=== PATIENT | male | born 1970 | race Caucasian/White ===

== ENCOUNTER 2020-07-21 13:28 | Day surgery (SDC) | payer OTHER ==
[2020-07-21] MEDS ORDERED: Xylocaine 1% Vial 30 ML PF IJ ONE (13:29)
[2020-07-21] MEDS ORDERED: BUPIVACAINE 0.5% VIAL IJ ONE (13:29)
[2020-07-21] MEDS ORDERED: Depo-Medrol 40 MG/ML IM ONE (13:29)
--- NOTE | 2020-07-21 16:38 | XRAY ---
Indication: Left shoulder injection. Intraoperative fluoroscopy was provided for 8 seconds. Single digital spot image submitted for interpretation demonstrates needle tip projecting over the left glenohumeral joint superiorly. Small amount of contrast injected for needle tip placement. Correlate with intraoperative findings/report.
--- NOTE | 2020-07-21 16:40 | XRAY ---
10 seconds fluoroscopy time in surgery for intra-articular injection of the right shoulder.
--- NOTE | 2020-07-21 16:40 | XRAY ---
8 seconds fluoroscopy time in surgery for intra-articular injection of the left shoulder.
--- NOTE | 2020-07-21 16:48 | XRAY ---
Indication: Right shoulder injection. Intraoperative fluoroscopy was provided for 10 seconds. Single digital spot image submitted for interpretation demonstrates needle tip projecting over the right glenohumeral joint superiorly. Small amount of contrast injected for needle tip placement. Correlate with intraoperative findings/report.
== END 2020-07-21 15:57 | disposition home or self-care (01) ==
LOC: SDC-PAIN 13:28
PROVIDERS: ATTEND Psychiatry & Neurology Pain Medicine
DX: M19.012 Primary osteoarthritis, left shoulder (principal); M19.011 Primary osteoarthritis, right shoulder; J44.9 Chronic obstructive pulmonary disease, unspecified; F43.10 Post-traumatic stress disorder, unspecified; Z79.899 Other long term (current) drug therapy
CPT/HCPCS: 20610; 73030; 77002; J1030; J2001; Q9966

== ENCOUNTER 2023-10-02 00:07 | Emergency (ER) | payer MEDICARE ==
[2023-10-02] MEDS ORDERED: TYLENOL 325 MG PO STA (00:50)
[2023-10-02] MEDS ORDERED: Zofran 4 MG/2 ML VIAL IV STA (00:50)
[2023-10-02] MEDS ORDERED: Sodium Chloride 0.9% 1000 ML 1,000 ML IV STA ×2 (00:50→01:46)
--- NOTE | 2023-10-02 00:50 | ERPHSYRPT ---
- History of Present Illness Time Seen by Provider: 10/02/23 00:35 Source: patient, family Exam Limitations: no limitations Patient Subjective Stated Complaint: Migraine headache x 1 week. Worse tonight with light sensitive, double vision, blurry vision. Nauseated. Cough started today. Triage Nursing Assessment: Patient presents with a migraine headache x 1 week. Patient states that the migraine is worse tonight with having light sensitivity, double vision, blurry vision. Nauseated. Cough started today. States has been taking Theraflu with some Ibuprofen flu pills. Physician History: This is a 53-year-old white male patient who drinks 1/5 of vodka daily and presents with 1 week history of headache, body aches, cough and sore throat. He is mildly nauseated but no vomiting. He has no abdominal pain. He has no chest pain. He denies shortness of breath. Patient has no known exposure to individuals similar symptoms. Patient takes no medications chronically and he has no known drug allergies. Patient has been using TheraFlu which does have dextromethorphan, acetaminophen and phenylephrine in it. He also has taken ibuprofen today. The last time he took ibuprofen was approximately 1 PM on 10/01/2023. It has been at least 6 hours since he is taken any medication per his report. Timing/Duration: week(s) (1) Fever Severity: moderate Fever Therapy PHARMACIST ASSISTANT: Ibuprofen, cold remedies Associated Symptoms: cough, headache, muscle aches, sore throat, No stiff neck Allergies/Adverse Reactions: No Known Drug Allergies Allergy (Unverified 10/02/23 00:14) Hx Tetanus, Diphtheria Vaccination/Date Given: Yes (2015) Hx Influenza Vaccination/Date Given: No Hx Pneumococcal Vaccination/Date Given: No Immunizations Up to Date: No Travel Risk - International Travel Have you traveled outside of the country in past 3 weeks: No - Coronavirus Screening Are you exhibiting any of the following symptoms?: Yes Symptoms: Fever, Cough: New Onset, Loss of Taste or Smell, Headaches/Body Aches/Fatigue Close contact with a COVID-19 positive Pt in past 14-21 Days: No - Vaccine Status Have you recieved a Covid-19 vaccination: No - Review of Systems Constitutional: Fever Eyes: No Symptoms Ears, Nose, & Throat: Throat Pain Respiratory: Cough Cardiac: No Symptoms, No Chest Pain Abdominal/Gastrointestinal: Nausea, Appetite Changes, No Vomiting Genitourinary Symptoms: No Symptoms Musculoskeletal: Arthralgias, Myalgias Skin: No Symptoms Neurological: Headache Psychological: Alcohol Abuse Endocrine: No Symptoms Hematologic/Lymphatic: No Symptoms Immunological/Allergic: No Symptoms All Other Systems: Reviewed and Negative - Past Medical History Pertinent Past Medical History: Yes Neurological History: No Pertinent History ENT History: No Pertinent History Cardiac History: No Pertinent History Respiratory History: Bronchitis, COPD, Sleep Apnea Endocrine Medical History: No Pertinent History Musculoskeletal History: Arthritis, Fractures GI Medical History: No Pertinent History History: No Pertinent History Psycho-Social History: Depression Male Reproductive Disorders: No Pertinent History - Past Surgical History Past Surgical History: Yes Neuro Surgical History: No Pertinent History Cardiac: No Pertinent History Respiratory: No Pertinent History Gastrointestinal: No Pertinent History Genitourinary: No Pertinent History Musculoskeletal: Orthopedic Surgery, Other Male Surgical History: No Pertinent History Other Surgical History: Right Jaw with plates, Left skull plate, Right wrist with 2 screws - Social History Smoking Status: Current every day smoker How long have you smoked: 43 Exposure to second hand smoke: No Drug Use: none Patient Lives Alone: Yes - Nursing Vital Signs Nursing Vital Signs: Initial Vital Signs Temperature 102.9 F 10/02/23 00:17 Pulse Rate 107 H 10/02/23 00:17 Respiratory Rate 20 10/02/23 00:17 Blood Pressure 138/92 10/02/23 00:17 O2 Sat by Pulse Oximetry 96 10/02/23 00:17 Pain Scale Pain Intensity 5 - Physical Exam General Appearance: no apparent distress, alert Eye Exam: PERRL/EOMI, eyes nml inspection ENT Exam: normal ENT inspection, no apparent trauma, hearing grossly normal Neck Exam: normal inspection, non-tender, supple, full range of motion Respiratory Exam: normal breath sounds, lungs clear, no respiratory distress, no accessory muscle use, No chest non-tender, No decreased breath sounds, No respiratory distress, No accessory muscle use, No stridor, No wheezing Cardiovascular/Chest Exam: tachycardia Gastrointestinal/Abdominal Exam: soft, non tender, no distention, no mass, no guarding, no ecchymosis, no organomegaly, no pulsatile mass, normal bowel sounds Rectal Exam: not done Extremity Exam: non-tender, normal range of motion, normal inspection Neurologic Exam: alert, oriented x 3, cooperative, store keeper II-XII nml as tested, normal mood/affect, nml cerebellar function, nml station & gait, sensation nml Skin Exam: normal color, warm, dry Lymphatic: No adenopathy SpO2 Interpretation: normal SpO2: 96 O2 Delivery: Room Air - Course Nursing assessment & vital signs reviewed: Yes Ordered Tests: Active Orders 24 hr Category Date Time Status Inventory Control Associate STAT Care 10/02/23 00:50 Active Clean Catch Urine Specimen STAT Care 10/02/23 01:01 Active IV Insertion STAT Care 10/02/23 00:50 Active Pulse Oximetry (ED) STAT Care 10/02/23 00:50 Active CHEST 1 VIEW (PORTABLE) Stat Exams 10/02/23 00:50 Taken BLOOD CULTURE Stat Lab 10/02/23 01:45 Received CBC W DIFF Stat Lab 10/02/23 00:50 Completed CMP Stat Lab 10/02/23 00:35 Completed ETHYL ALCOHOL Stat Lab 10/02/23 00:50 Completed MONO SCREEN Stat Lab 10/02/23 00:35 Completed TROPONIN Q4H Lab 10/02/23 01:00 Completed TROPONIN Q4H Lab 10/02/23 06:15 Ordered TROPONIN Q4H Lab 10/02/23 10:15 Ordered UA W/RFX UR CULTURE Stat Lab 10/02/23 03:59 Completed Urine Triage Profile Stat Lab 10/02/23 03:59 Completed Medication Summary Discontinued Medications Generic Name Dose Route Start Last Admin Trade Name Sajanq PRN Reason Stop Dose Admin Acetaminophen 650 mg 10/02/23 00:50 10/02/23 01:08 Acetaminophen 325 Mg Tablet PO 10/02/23 00:51 650 mg STAT STA Administration Acetaminophen Confirm 10/02/23 01:05 Acetaminophen 325 Mg Tablet Administered 10/02/23 01:06 Dose 650 mg .ROUTE .STK-MED ONE Hydrocodone Bitart/Acetaminophen 15 ml 10/02/23 00:51 10/02/23 01:07 Hydrocodone/Acetaminophen 5 Ml Udcup PO 10/02/23 00:52 15 ml STAT STA Administration Hydrocodone Bitart/Acetaminophen Confirm 10/02/23 01:05 Hydrocodone/Acetaminophen 5 Ml Udcup Administered 10/02/23 01:06 Dose 15 ml .ROUTE .STK-MED ONE Hydromorphone HCl 1 mg 10/02/23 02:44 10/02/23 02:54 Hydromorphone 1 Mg/1ml Inj IV 10/02/23 02:45 1 mg STAT ONE Administration Hydromorphone HCl Confirm 10/02/23 02:53 Hydromorphone 1 Mg/1ml Inj Administered 10/02/23 02:54 Dose 1 mg .ROUTE .STK-MED ONE Sodium Chloride 1,000 mls @ 999 mls/hr 10/02/23 00:50 10/02/23 02:23 Sodium Chloride 0.9% 1000 Ml IV 10/02/23 01:50 Infused .Q1H1M STA Infusion Sodium Chloride Confirm 10/02/23 01:05 Sodium Chloride 0.9% 1000 Ml Administered 10/02/23 01:06 Dose 1,000 mls @ ud .ROUTE .STK-MED ONE Sodium Chloride 1,000 mls @ 999 mls/hr 10/02/23 01:46 10/02/23 03:13 Sodium Chloride 0.9% 1000 Ml IV 10/02/23 02:46 Infused .Q1H1M STA Infusion Sodium Chloride Confirm 10/02/23 01:52 Sodium Chloride 0.9% 1000 Ml Administered 10/02/23 01:53 Dose 1,000 mls @ ud .ROUTE .STK-MED ONE Ibuprofen 600 mg 10/02/23 01:01 10/02/23 01:08 Ibuprofen 600 Mg Tablet PO 10/02/23 01:02 600 mg STAT ONE Administration Ibuprofen Confirm 10/02/23 01:04 Ibuprofen 600 Mg Tablet Administered 10/02/23 01:05 Dose 600 mg .ROUTE .STK-MED ONE Ondansetron HCl 4 mg 10/02/23 00:50 10/02/23 01:09 Ondansetron Hcl 4 Mg/2 Ml Vial IV 10/02/23 00:51 4 mg STAT STA Administration Ondansetron HCl Confirm 10/02/23 01:04 Ondansetron Hcl 4 Mg/2 Ml Vial Administered 10/02/23 01:05 Dose 4 mg .ROUTE .STK-MED ONE Pantoprazole Sodium 40 mg 10/02/23 01:01 10/02/23 01:09 Pantoprazole 40 Mg Vial IV 10/02/23 01:02 40 mg STAT ONE Administration Pantoprazole Sodium Confirm 10/02/23 01:05 Pantoprazole 40 Mg Vial Administered 10/02/23 01:06 Dose 40 mg IV .STK-MED ONE Lab/Rad Data: Laboratory Result Diagrams 10/02/23 00:50 10/02/23 00:35 Laboratory Results 10/02/23 10/02/23 10/02/23 Range/Units 03:59 03:59 01:00 WBC (4.0-10.5) x10^3/uL RBC (4.1-5.6) x10^6/uL Hgb (12.5-18.0) g/dL Hct (42-50) % MCV (78-100) fL MCH (26-32) pg MCHC (32-36) g/dL RDW (11.5-14.0) % Plt Count (150-450) x10^3/uL MPV (7.5-11.0) fL Gran % (36.0-66.0) % Immature Gran % (Auto) (0.00-0.4) % Nucleat RBC Rel Count (0.00-0.1) % Eos # (Auto) (0-0.5) x10^3/uL Immature Gran # (Auto) (0.00-0.03) x10^3u/L Absolute Lymphs (auto) (1.0-4.6) x10^3/uL Absolute Monos (auto) (0.0-1.3) x10^3/uL Absolute Nucleated RBC (0.00-0.01) x10^3u/L Lymphocytes % (24.0-44.0) % Monocytes % (0.0-12.0) % Eosinophils % (0.00-5.0) % Basophils % (0.0-0.4) % Absolute Granulocytes (1.4-6.9) x10^3/uL Basophils # (0-0.4) x10^3/uL Sodium (137-145) mmol/L Potassium (3.5-5.1) mmol/L Chloride (98-107) mmol/L Carbon Dioxide (22-30) mmol/L Anion Gap (5-15) MEQ/L BUN (9-20) mg/dL Creatinine (0.66-1.25) mg/dL Estimated GFR ML/MIN Glucose (74-106) mg/dL Calcium (8.4-10.2) mg/dL Total Bilirubin (0.2-1.3) mg/dL AST (17-59) U/L ALT (0-50) U/L Alkaline Phosphatase (38-126) U/L Troponin I < 0.012 (0.000-0.034) ng/mL Serum Total Protein (6.3-8.2) g/dL Albumin (3.5-5.0) g/dL Urine Color Dark Yellow (Yellow) Urine Appearance Clear (Clear) Urine pH 6.0 (4.6-8.0) Ur Specific [place] 1.025 (1.005-1.030) Urine Protein Trace A (Negative) Urine Glucose (UA) Negative (Negative) mg/dL Urine Ketones Negative (Negative) Urine Blood Negative (Negative) Urine Nitrite Negative (Negative) Urine Bilirubin Negative (Negative) Urine Urobilinogen 1.0 A (0.2) mg/dL Ur Leukocyte Esterase Negative (Negative) U Hyaline Cast (Auto) NONE SEEN (0-2) /LPF Urine Microscopic RBC 0-2 (0-5) /HPF Urine Microscopic WBC 0-2 (0-5) /HPF Ur Epithelial Cells None Seen (None Seen) /HPF Urine Bacteria None Seen (None Seen) /HPF Urine Culture Reflexed NO (NO) Urine Opiates Level POSITIVE A (NEGATIVE) Ur Methadone NEGATIVE (NEGATIVE) Urine Barbiturates NEGATIVE (NEGATIVE) Ur Phencyclidine (PCP) NEGATIVE (NEGATIVE) Urine Amphetamine POSITIVE A (NEGATIVE) U Benzodiazepine Level NEGATIVE (NEGATIVE) Urine Cocaine NEGATIVE (NEGATIVE) Urine Marijuana (THC) NEGATIVE (NEGATIVE) Ethyl Alcohol (0-10) mg/dL Monoscreen (NEGATIVE) Influenza Type A Ag (NEGATIVE) Influenza Type B Ag (NEGATIVE) RSV (PCR) (NEGATIVE) SARS-CoV-2 (PCR) (NEGATIVE) Group A Strep Antibody (NEGATIVE) 10/02/23 10/02/23 10/02/23 Range/Units 00:50 00:50 00:35 WBC 5.6 (4.0-10.5) x10^3/uL RBC 5.19 (4.1-5.6) x10^6/uL Hgb 15.2 (12.5-18.0) g/dL Hct 45.7 (42-50) % MCV 88.1 (78-100) fL MCH 29.3 (26-32) pg MCHC 33.3 (32-36) g/dL RDW 12.5 (11.5-14.0) % Plt Count 160 (150-450) x10^3/uL MPV 9.3 (7.5-11.0) fL Gran % 73.8 H (36.0-66.0) % Immature Gran % (Auto) 0.2 (0.00-0.4) % Nucleat RBC Rel Count 0.0 (0.00-0.1) % Eos # (Auto) 0.01 (0-0.5) x10^3/uL Immature Gran # (Auto) 0.01 (0.00-0.03) x10^3u/L Absolute Lymphs (auto) 0.85 L (1.0-4.6) x10^3/uL Absolute Monos (auto) 0.57 (0.0-1.3) x10^3/uL Absolute Nucleated RBC 0.00 (0.00-0.01) x10^3u/L Lymphocytes % 15.2 L (24.0-44.0) % Monocytes % 10.2 (0.0-12.0) % Eosinophils % 0.2 (0.00-5.0) % Basophils % 0.4 (0.0-0.4) % Absolute Granulocytes 4.13 (1.4-6.9) x10^3/uL Basophils # 0.02 (0-0.4) x10^3/uL Sodium (137-145) mmol/L Potassium (3.5-5.1) mmol/L Chloride (98-107) mmol/L Carbon Dioxide (22-30) mmol/L Anion Gap (5-15) MEQ/L BUN (9-20) mg/dL Creatinine (0.66-1.25) mg/dL Estimated GFR ML/MIN Glucose (74-106) mg/dL Calcium (8.4-10.2) mg/dL Total Bilirubin (0.2-1.3) mg/dL AST (17-59) U/L ALT (0-50) U/L Alkaline Phosphatase (38-126) U/L Troponin I (0.000-0.034) ng/mL Serum Total Protein (6.3-8.2) g/dL Albumin (3.5-5.0) g/dL Urine Color (Yellow) Urine Appearance (Clear) Urine pH (4.6-8.0) Ur Specific [place] (1.005-1.030) Urine Protein (Negative) Urine Glucose (UA) (Negative) mg/dL Urine Ketones (Negative) Urine Blood (Negative) Urine Nitrite (Negative) Urine Bilirubin (Negative) Urine Urobilinogen (0.2) mg/dL Ur Leukocyte Esterase (Negative) U Hyaline Cast (Auto) (0-2) /LPF Urine Microscopic RBC (0-5) /HPF Urine Microscopic WBC (0-5) /HPF Ur Epithelial Cells (None Seen) /HPF Urine Bacteria (None Seen) /HPF Urine Culture Reflexed (NO) Urine Opiates Level (NEGATIVE) Ur Methadone (NEGATIVE) Urine Barbiturates (NEGATIVE) Ur Phencyclidine (PCP) (NEGATIVE) Urine Amphetamine (NEGATIVE) U Benzodiazepine Level (NEGATIVE) Urine Cocaine (NEGATIVE) Urine Marijuana (THC) (NEGATIVE) Ethyl Alcohol < 10 (0-10) mg/dL Monoscreen POSITIVE (NEGATIVE) Influenza Type A Ag (NEGATIVE) Influenza Type B Ag (NEGATIVE) RSV (PCR) (NEGATIVE) SARS-CoV-2 (PCR) (NEGATIVE) Group A Strep Antibody (NEGATIVE) 10/02/23 10/02/23 Range/Units 00:35 00:30 WBC (4.0-10.5) x10^3/uL RBC (4.1-5.6) x10^6/uL Hgb (12.5-18.0) g/dL Hct (42-50) % MCV (78-100) fL MCH (26-32) pg MCHC (32-36) g/dL RDW (11.5-14.0) % Plt Count (150-450) x10^3/uL MPV (7.5-11.0) fL Gran % (36.0-66.0) % Immature Gran % (Auto) (0.00-0.4) % Nucleat RBC Rel Count (0.00-0.1) % Eos # (Auto) (0-0.5) x10^3/uL Immature Gran # (Auto) (0.00-0.03) x10^3u/L Absolute Lymphs (auto) (1.0-4.6) x10^3/uL Absolute Monos (auto) (0.0-1.3) x10^3/uL Absolute Nucleated RBC (0.00-0.01) x10^3u/L Lymphocytes % (24.0-44.0) % Monocytes % (0.0-12.0) % Eosinophils % (0.00-5.0) % Basophils % (0.0-0.4) % Absolute Granulocytes (1.4-6.9) x10^3/uL Basophils # (0-0.4) x10^3/uL Sodium 131 L (137-145) mmol/L Potassium 4.2 (3.5-5.1) mmol/L Chloride 97 L (98-107) mmol/L Carbon Dioxide 24 (22-30) mmol/L Anion Gap 14.3 (5-15) MEQ/L BUN 14 (9-20) mg/dL Creatinine 1.03 (0.66-1.25) mg/dL Estimated GFR 85.8 ML/MIN Glucose 109 H (74-106) mg/dL Calcium 9.0 (8.4-10.2) mg/dL Total Bilirubin 0.60 (0.2-1.3) mg/dL AST 45 (17-59) U/L ALT 49 (0-50) U/L Alkaline Phosphatase 90 (38-126) U/L Troponin I (0.000-0.034) ng/mL Serum Total Protein 8.1 (6.3-8.2) g/dL Albumin 4.5 (3.5-5.0) g/dL Urine Color (Yellow) Urine Appearance (Clear) Urine pH (4.6-8.0) Ur Specific [place] (1.005-1.030) Urine Protein (Negative) Urine Glucose (UA) (Negative) mg/dL Urine Ketones (Negative) Urine Blood (Negative) Urine Nitrite (Negative) Urine Bilirubin (Negative) Urine Urobilinogen (0.2) mg/dL Ur Leukocyte Esterase (Negative) U Hyaline Cast (Auto) (0-2) /LPF Urine Microscopic RBC (0-5) /HPF Urine Microscopic WBC (0-5) /HPF Ur Epithelial Cells (None Seen) /HPF Urine Bacteria (None Seen) /HPF Urine Culture Reflexed (NO) Urine Opiates Level (NEGATIVE) Ur Methadone (NEGATIVE) Urine Barbiturates (NEGATIVE) Ur Phencyclidine (PCP) (NEGATIVE) Urine Amphetamine (NEGATIVE) U Benzodiazepine Level (NEGATIVE) Urine Cocaine (NEGATIVE) Urine Marijuana (THC) (NEGATIVE) Ethyl Alcohol (0-10) mg/dL Monoscreen (NEGATIVE) Influenza Type A Ag POSITIVE (NEGATIVE) Influenza Type B Ag NEGATIVE (NEGATIVE) RSV (PCR) NEGATIVE (NEGATIVE) SARS-CoV-2 (PCR) NEGATIVE (NEGATIVE) Group A Strep Antibody NOT DETECTED (NEGATIVE) - Progress Progress: improved, re-examined Progress Note: 10/02/23 01:08 This patient's medical issue is 1 of moderate complexity. The level of complexity and the workup performed is based on review of the patient's past medical history, review of the patient's medication list, reviewed patient's drug allergy list, history present illness and physical findings on examination. This patient's workup includes placement of intravenous line, infusion of normal saline solution, infusion of Zofran intravenously, infusion of Protonix intravenously, oral hydrocodone/acetaminophen cough medicine, oral ibuprofen, CBC, CMP, viral swabs, group A strep swab, monotest, chest x-ray and urinalysis as well as urine drug screen and alcohol level. 10/02/23 04:57 I interpreted the patient's laboratory data results. The patient is positive for influenza A and mononucleosis Counseled pt/family regarding: lab results, diagnosis, need for follow-up, rad results Medical Desision Making - Independent Historian Additional History obtained from: Relative/friend - Diagnostic Testing Diagnostic test were ordered, analyzed, and reviewed by me: Yes Radiological Interpretation: Interpreted by me - Risk of complications The pt has a mod risk of morbidity or mortality based on: Need for prescription drug management - Departure Departure Disposition: Home Clinical Impression: Fever, Influenza A H1N1 infection, Mononucleosis Condition: Stable Critical Care Time: No Referrals: DAQUAN GONZALES [Primary Care Provider] - Follow up/PCP as directed Additional Instructions: Drink plenty of cool liquids. Avoid alcohol use while taking Tylenol/acetaminophen. Take ibuprofen 600 mg orally every 8 hours with food for the next 5 days. Prescriptions: Ondansetron ODT 4 MG [Zofran Odt 4 mg] 4 mg PO Q6H PRN PRN #10 tablet PRN Reason: Vomiting
[2023-10-02] MEDS ORDERED: HYDROCODONE-ACETAMIN 2.5-108/5 ML SOLUTION PO STA (00:51)
[2023-10-02 00:56] LABS: Absolute Neutrophil Ct (ANC) 4.13 x10^3/uL (1.4-6.9); BASOPHIL % 0.4 % (0.0-0.4); Basophil (Absolute #) 0.02 x10^3/uL (0-0.4); Eosinophil % 0.2 % (0.00-5.0); Eosinophil (Absolute #) 0.01 x10^3/uL (0-0.5); Hematocrit 45.7 % (42-50); Hemoglobin 15.2 g/dL (12.5-18.0); IMMATURE GRAN # 0.01 x10^3u/L (0.00-0.03); IMMATURE GRAN % 0.2 % (0.00-0.4); Lymphocyte (Absolute #) 0.85 x10^3/uL (1.0-4.6); Lymphocytes % 15.2 % (24.0-44.0); Mean Cell Volume 88.1 fL (78-100); Mean Corpuscular Hemoglobin 29.3 pg (26-32); Mean Corpuscular Hgb Concent. 33.3 g/dL (32-36); Mean Platelet Volume 9.3 fL (7.5-11.0); Monocyte (Absolute #) 0.57 x10^3/uL (0.0-1.3); Monocytes % 10.2 % (0.0-12.0); Neutrophil % 73.8 % (36.0-66.0); Platelet Count 160 x10^3/uL (150-450); Red Blood Count 5.19 x10^6/uL (4.1-5.6); Red Cell Distribution Width 12.5 % (11.5-14.0); White Blood Count 5.6 x10^3/uL (4.0-10.5)
[2023-10-02] MEDS ORDERED: MOTRIN 600 MG PO ONE (01:01)
[2023-10-02] MEDS ORDERED: PROTONIX 40 MG IV IV ONE ×2 (01:01→01:05)
[2023-10-02 01:04] LABS: ALBUMIN 4.5 g/dL (3.5-5.0); ANION GAP 14.3 MEQ/L (5-15); BILIRUBIN,TOTAL 0.6 mg/dL (0.2-1.3); Creatinine 1 1.03 mg/dL (0.66-1.25); EST GLOMERULAR FILTRATION RATE 85.8 ML/MIN; Potassium 4.2 mmol/L (3.5-5.1); Total Protein 8.1 g/dL (6.3-8.2)
[2023-10-02] MEDS ORDERED: Zofran 4 MG/2 ML VIAL ONE (01:04)
[2023-10-02] MEDS ORDERED: MOTRIN 600 MG ONE (01:04)
[2023-10-02 01:05] LABS: Group A Strep NOT DETECTED (NEGATIVE)
[2023-10-02] MEDS ORDERED: HYDROCODONE-ACETAMIN 2.5-108/5 ML SOLUTION ONE (01:05)
[2023-10-02] MEDS ORDERED: TYLENOL 325 MG ONE (01:05)
[2023-10-02] MEDS ORDERED: Sodium Chloride 0.9% 1000 ML 1,000 ML ONE ×2 (01:05→01:52)
[2023-10-02 01:17] LABS: INFLUENZA B NEGATIVE (NEGATIVE); RESPIRATORY SYNCTIAL VIRUS NEGATIVE (NEGATIVE); SARS-CoV-2 Xpert Express NEGATIVE (NEGATIVE)
[2023-10-02 01:18] LABS: INFLUENZA A POSITIVE (NEGATIVE)
[2023-10-02] MEDS ORDERED: Hydromorphone 1 mg/ml Injection IV ONE (02:44)
[2023-10-02] MEDS ORDERED: Hydromorphone 1 mg/ml Injection ONE (02:53)
[2023-10-02 04:13] LABS: Appearance Clear (Clear); Bacteria None Seen /HPF (None Seen); Bilirubin Negative (Negative); Blood Negative (Negative); Epithelial Cells None Seen /HPF (None Seen); Glucose, Urine Negative (Negative); Hyaline Casts NONE SEEN /LPF (0-2); Ketones Negative (Negative); Leukocyte Esterase Negative (Negative); Nitrite Negative (Negative); Protein,Urine Dip Trace (Negative); RBC 0-2 /HPF (0-5); Specific Gravity 1.025 (1.005-1.030); WBC 0-2 /HPF (0-5)
[2023-10-02 04:14] LABS: ADD URINE CULTURE? NO (NO)
[2023-10-02 04:22] LABS: Barbiturate,Urine NEGATIVE (NEGATIVE); Benzodiazepine,Urine NEGATIVE (NEGATIVE); Cocaine,Urine NEGATIVE (NEGATIVE); Methadone,Urine NEGATIVE (NEGATIVE); Opiate,Urine POSITIVE (NEGATIVE); PCP,Urine NEGATIVE (NEGATIVE); THC,Urine NEGATIVE (NEGATIVE)
[2023-10-02 04:48] LABS: Amphetamine,Urine POSITIVE (NEGATIVE)
[2023-10-02 04:58] VITALS: PULSE 75; TEMP 98
[2023-10-02 04:59] VITALS: O2SAT 96
[2023-10-02 05:58] VITALS: BP 119/79; RESP 15
--- NOTE | 2023-10-02 09:16 | XRAY ---
Indication: Fever and cough. Comparison: None Portable chest demonstrates a few incidental tiny calcified granulomas. No focal infiltrate, consolidation, or large effusion. Heart and mediastinal structures within normal limits. Bony thorax intact with minimal degenerative changes. Impression: Nonacute chest with chronic features.
== END 2023-10-02 05:51 | disposition home or self-care (01) ==
LOC: ED 00:07
DX: J10.1 Influenza due to other identified influenza virus with other respiratory manifestations (principal); B27.90 Infectious mononucleosis, unspecified without complication; R50.9 Fever, unspecified; R51.9 Headache, unspecified; M79.10 Myalgia, unspecified site; R05.1 Acute cough; R11.0 Nausea; Z28.310 Unvaccinated for COVID-19; Z72.0 Tobacco use
CPT/HCPCS: 0241U; 36000; 36415; 71045; 80053; 80307; 81001; 82077; 84484; 85025; 86308; 87040; 87651; 93041; 94760; 96360; 96374; 96375; 99284; J1170; J2405; A9270-GY

== ENCOUNTER 2023-10-04 16:23 | Emergency (ER) | payer MEDICARE ==
[2023-10-04] MEDS ORDERED: TORAdol 30 mg Injection IM ONE (16:55)
--- NOTE | 2023-10-04 16:57 | ERPHSYRPT ---
- History of Present Illness Source: patient Exam Limitations: no limitations Patient Subjective Stated Complaint: pt states that he was in the er on 10/02 and diagnosed with flu a. pt states that the headache is still there. pt states that pain is better than the but thought he should get it checked out Triage Nursing Assessment: pt ambulated into the er; pt is axo x4; c/o headache; pt states 7/10 pain to head; skin PDW; afebrile; no respiratory distress present; vital wnl Physician History: Patient was diagnosed with flu A. The patient presents again with persistent headache. He is also had cough congestion and bodyaches. He was only discharged on Zofran. Allergies/Adverse Reactions: No Known Drug Allergies Allergy (Verified 10/04/23 16:33) Hx Tetanus, Diphtheria Vaccination/Date Given: Yes (2015) Hx Influenza Vaccination/Date Given: No Hx Pneumococcal Vaccination/Date Given: No Travel Risk - International Travel Have you traveled outside of the country in past 3 weeks: No - Coronavirus Screening Are you exhibiting any of the following symptoms?: Yes Symptoms: Cough: New Onset, Vomiting/Diarrhea, Headaches/Body Aches/Fatigue - Vaccine Status Have you recieved a Covid-19 vaccination: No - Review of Systems Constitutional: Fever, Chills, Fatigue, Night Sweats Eyes: No Symptoms Ears, Nose, & Throat: No Symptoms Respiratory: Cough Cardiac: No Chest Pain, No Edema, No Syncope Abdominal/Gastrointestinal: No Abdominal Pain, No Nausea, No Vomiting, No Diarrhea Genitourinary Symptoms: No Dysuria Musculoskeletal: No Back Pain, No Neck Pain Skin: No Rash Neurological: Headache Psychological: No Symptoms Endocrine: No Symptoms All Other Systems: Reviewed and Negative - Past Medical History Pertinent Past Medical History: Yes Neurological History: No Pertinent History ENT History: No Pertinent History Cardiac History: No Pertinent History Respiratory History: Bronchitis, COPD, Sleep Apnea Endocrine Medical History: No Pertinent History Musculoskeletal History: Arthritis, Fractures GI Medical History: No Pertinent History History: No Pertinent History Psycho-Social History: Depression Male Reproductive Disorders: No Pertinent History - Past Surgical History Past Surgical History: Yes Neuro Surgical History: No Pertinent History Cardiac: No Pertinent History Respiratory: No Pertinent History Gastrointestinal: No Pertinent History Genitourinary: No Pertinent History Musculoskeletal: Orthopedic Surgery, Other Male Surgical History: No Pertinent History Other Surgical History: Right Jaw with plates, Left skull plate, Right wrist with 2 screws - Social History Smoking Status: Current every day smoker How long have you smoked: 43 Exposure to second hand smoke: No Drug Use: none Patient Lives Alone: No - Nursing Vital Signs Nursing Vital Signs: Initial Vital Signs Pulse Rate 92 H 10/04/23 17:07 Blood Pressure 120/72 10/04/23 17:07 O2 Sat by Pulse Oximetry 97 10/04/23 17:07 Pain Scale Pain Intensity 7 - Physical Exam General Appearance: no apparent distress, alert Eye Exam: PERRL/EOMI, eyes nml inspection Ears, Nose, Throat Exam: normal ENT inspection, TMs normal, pharynx normal, moist mucous membranes Neck Exam: normal inspection, non-tender, supple, full range of motion Respiratory Exam: normal breath sounds, lungs clear, No respiratory distress Cardiovascular Exam: regular rate/rhythm, normal heart sounds Gastrointestinal/Abdomen Exam: soft, No tenderness Back Exam: normal inspection, No CVA tenderness, No vertebral tenderness Extremity Exam: normal inspection, normal range of motion Neurologic Exam: alert, oriented x 3, cooperative, normal mood/affect, sensation nml, No motor deficits Skin Exam: normal color, warm, dry, No rash Lymphatic Exam: No adenopathy SpO2 Interpretation: normal O2 Delivery: Room Air - Course Nursing assessment & vital signs reviewed: Yes Ordered Tests: Active Orders 24 hr Category Date Time Status HEAD WITHOUT CONTRAST [CT] Stat Exams 10/04/23 16:57 Taken Medication Summary Discontinued Medications Generic Name Dose Route Start Last Admin Trade Name Titi PRN Reason Stop Dose Admin Ketorolac Tromethamine 30 mg 10/04/23 16:55 10/04/23 17:05 Ketorolac Tromethamine 30 Mg/Ml Inj IM 10/04/23 16:56 30 mg STAT ONE Administration Ketorolac Tromethamine Confirm 10/04/23 17:03 Ketorolac Tromethamine 30 Mg/Ml Inj Administered 10/04/23 17:04 Dose 30 mg .ROUTE .[employer] ONE Lab/Rad Data: Head CT was later read as normal. The patient had already left AMA. - Progress Progress Note: 10/04/23 17:00 This patient presents with a headache most consistent with benign headache from either tension type headache vs migraine. No headache red flags. Neurologic exam without evidence of meningismus, AMS, focal neurologic findings so doubt meningitis, encephalitis, stroke. Presentation not consistent with acute intracranial bleed to include SAH (lack of risk factors, headache history). No history of trauma so doubt ICH. Given history and physical temporal arteritis unlikely, as is acute angle closure glaucoma. Doubt carotid artery dissection given no focal neuro deficits, no neck trauma or recent neck strain. Patient with no signs of increased intracranial pressure or weight loss and history and physical suggest more benign headache so less likely mass effect in brain from tumor or abscess or idiopathic intracranial hypertension. Pain was controlled with headache cocktail and patient discharged home with PMD follow up. The patient will be treated with Zithromax in case he is developing a pneumonia. Clinically his lungs are essentially clear but he has a persistent cough. The patient is several days outside the window for Tamiflu. Clinically at this point there is no signs of respiratory distress sepsis. The patient will be given a shot of Toradol. The patient will get a CAT scan of the head. He has had persistent headache and is never had headaches. Clinically this is most likely secondary to the flu. Pt wants to leave AMA, I have discussed with the patient in usual manner risks and disability, nurses also tried to convince patient to stay and unsuccessful. Pt was instructed to follow up with their PCP or the doctor provided LIO and to return for any changes or concerns. Pt signed AMA form and verbalized understanding of AMA process. The patient is stable. The patient did not want to wait for his head CT results. They were later found to be unremarkable. 10/04/23 18:07 Counseled pt/family regarding: diagnosis, need for follow-up, rad results - Departure Departure Disposition: AMA Clinical Impression: Fever, Influenza A H1N1 infection, Headache Condition: Stable Critical Care Time: No Referrals: DAQUAN GONZALES [Primary Care Provider] - Follow up/PCP as directed Instructions: Flu, Headache, Adult (DC) Additional Instructions: Thank you for choosing our Emergency Department for your healthcare! Please take your medicines prescribed as directed and be assured that you follow up with the physician provided or your PCP in the next 1-2 days to assure you are improving. All medical problems cannot be reasonably diagnosed in your ED visit today. Return for any changes or concerns, including if your condition does not improve or you are unable to obtain follow-up. Some final results, including radiology reports, do not return the same day, but are available on the patient portal or can be obtained through your PCP DO NOT TAKE ZOFRAN with ZPACK Prescriptions: Naproxen 500 mg [Naprosyn 500 MG] 500 mg PO BID #10 tablet Azithromycin 250 mg [Zithromax 250 MG TABLET] 250 mg PO ZPACK #6 tablet
[2023-10-04] MEDS ORDERED: TORAdol 30 mg Injection ONE (17:03)
[2023-10-04 17:08] VITALS: O2SAT 97
[2023-10-04 18:11] VITALS: BP 118/68; PULSE 88
--- NOTE | 2023-10-05 08:44 | XRAY ---
Indication: Headache. Multiple contiguous axial images obtained through the head without contrast. Comparison: None 4 mm remote lacunar infarct left external capsule. No acute intracranial hemorrhage, abnormal extra axial fluid collection, or mass effect. Fourth ventricle midline without hydrocephalus. Bony calvarium intact. Visualized paranasal sinuses and mastoid air cells are clear. Impression: Remote lacunar infarct left external capsule. No acute findings.
== END 2023-10-04 18:00 | disposition left against medical advice (07) ==
LOC: ED 16:23
DX: J10.1 Influenza due to other identified influenza virus with other respiratory manifestations (principal); R50.9 Fever, unspecified; R51.9 Headache, unspecified; R05.9 Cough, unspecified; M79.10 Myalgia, unspecified site; Z28.310 Unvaccinated for COVID-19; Z72.0 Tobacco use
CPT/HCPCS: 70450; 96372; 99283; J1885

== ENCOUNTER 2023-11-05 04:51 | Emergency (ER) | payer MEDICARE ==
--- NOTE | 2023-11-05 07:00 | ERPHSYRPT ---
- History of Present Illness Time Seen by Provider: 11/05/23 06:55 Historian: patient Exam Limitations: no limitations Physician History: Patient is a 53-year-old white male who presents with left inguinal and groin pain. He has had a left inguinal hernia for 6 years and says it has been bothering him more the past 2 months. He denies any nausea vomiting he says that when he lays down it does reduce itself. Timing/Duration: other (Hernia present 6 years worse the last 2 months) Quality: burning, throbbing Abdominal Pain Onset Location: other Pain Radiation: groin Severity of Pain-Max: moderate Severity of Pain-Current: mild Modifying Factors: Improves With: coughing, movement, walking Associated Symptoms: denies symptoms Previous symptoms: same symptoms as today Allergies/Adverse Reactions: No Known Drug Allergies Allergy (Verified 11/05/23 06:42) Home Medications: Dextroamphetamine/Amphetamine [Adderall Xr 30 mg Capsule] 30 mg PO DAILY 11/05/23 [History] Hx Tetanus, Diphtheria Vaccination/Date Given: Yes (2015) Hx Influenza Vaccination/Date Given: No Hx Pneumococcal Vaccination/Date Given: No Travel Risk - Vaccine Status Have you recieved a Covid-19 vaccination: No - Review of Systems Constitutional: No Fever, No Chills Eyes: No Symptoms Ears, Nose, & Throat: No Symptoms Respiratory: No Cough, No Dyspnea Cardiac: No Chest Pain, No Edema, No Syncope Abdominal/Gastrointestinal: No Abdominal Pain, No Nausea, No Vomiting, No Diarrhea Genitourinary Symptoms: Other (Hernia), No Dysuria Musculoskeletal: No Back Pain, No Neck Pain Skin: No Rash Neurological: No Dizziness, No Focal Weakness, No Sensory Changes Psychological: No Symptoms Endocrine: No Symptoms All Other Systems: Reviewed and Negative - Past Medical History Pertinent Past Medical History: Yes Neurological History: No Pertinent History ENT History: No Pertinent History Cardiac History: No Pertinent History Respiratory History: Bronchitis, COPD, Sleep Apnea Endocrine Medical History: No Pertinent History Musculoskeletal History: Arthritis, Fractures GI Medical History: No Pertinent History History: No Pertinent History Psycho-Social History: Depression Male Reproductive Disorders: No Pertinent History - Past Surgical History Past Surgical History: Yes Neuro Surgical History: No Pertinent History Cardiac: No Pertinent History Respiratory: No Pertinent History Gastrointestinal: No Pertinent History Genitourinary: No Pertinent History Musculoskeletal: Orthopedic Surgery, Other Male Surgical History: No Pertinent History Other Surgical History: Right Jaw with plates, Left skull plate, Right wrist with 2 screws - Social History Smoking Status: Current every day smoker How long have you smoked: 43 Exposure to second hand smoke: No Drug Use: none Patient Lives Alone: No - Physical Exam General Appearance: mild distress, alert Eye Exam: PERRL/EOMI, eyes nml inspection Ears, Nose, Throat Exam: normal ENT inspection, pharynx normal, moist mucous m embranes Neck Exam: normal inspection, non-tender, supple, full range of motion Respiratory Exam: normal breath sounds, lungs clear, No respiratory distress Cardiovascular Exam: regular rate/rhythm, normal heart sounds Gastrointestinal/Abdomen Exam: soft, No tenderness, No mass Male Genitalia Exam: hernia (Has left inguinal hernia easily reducible) Back Exam: normal inspection, normal range of motion, No CVA tenderness, No vertebral tenderness Extremity Exam: normal inspection, normal range of motion, pelvis stable Neurologic Exam: alert, oriented x 3, cooperative, normal mood/affect, nml cere bellar function, sensation nml, No motor deficits Skin Exam: normal color, warm, dry - Course Nursing assessment & vital signs reviewed: Yes - Progress Progress: unchanged Progress Note: 11/05/23 06:59 Patient will be referred to the surgery group [facility] - Risk of complications Low Risk: Low risk of morbidity from additional dx testing or treatment - Departure Departure Disposition: Home Clinical Impression: Left inguinal hernia Condition: Stable Critical Care Time: No Referrals: DAQUAN GONZALES [Primary Care Provider] - Follow up/PCP as directed Additional Instructions: Patient will be given the office number for the [facility] and he can set up an appointment with him. Prescriptions: Tramadol HCl 50 mg [Ultram 50 mg] 50 mg PO Q6H 3 Days #12 tablet
[2023-11-05 07:01] VITALS: TEMP 97.7
[2023-11-05 07:12] VITALS: BP 130/91; PULSE 81; RESP 18; O2SAT 99
== END 2023-11-05 07:18 | disposition home or self-care (01) ==
LOC: ED 04:51
DX: K40.90 Unilateral inguinal hernia, without obstruction or gangrene, not specified as recurrent (principal); R10.2 Pelvic and perineal pain; Z79.891 Long term (current) use of opiate analgesic; Z79.899 Other long term (current) drug therapy; Z28.310 Unvaccinated for COVID-19; Z72.0 Tobacco use
CPT/HCPCS: 99281

== ENCOUNTER 2023-11-30 04:17 | Emergency (ER) | payer MEDICARE ==
[2023-11-30 04:31] VITALS: RESP 19; TEMP 97.9
[2023-11-30 05:26] LABS: Appearance Clear (Clear); Bacteria None Seen /HPF (None Seen); Bilirubin Negative (Negative); Blood Negative (Negative); Epithelial Cells None Seen /HPF (None Seen); Glucose, Urine Negative (Negative); Hyaline Casts NONE SEEN /LPF (0-2); Ketones Trace (Negative); Leukocyte Esterase Negative (Negative); Nitrite Negative (Negative); Protein,Urine Dip Negative (Negative); RBC 0-2 /HPF (0-5); Specific Gravity 1.025 (1.005-1.030); WBC 0-2 /HPF (0-5)
[2023-11-30 05:27] LABS: ADD URINE CULTURE? NO (NO); Sperm Few /HPF (None Seen)
[2023-11-30] MEDS ORDERED: TORAdol 30 mg Injection ONE (05:36)
[2023-11-30] MEDS: TORAdol 30 mg Injection IM ONE (05:39)
[2023-11-30 05:40] VITALS: O2SAT 98
--- NOTE | 2023-11-30 05:45 | XRAY ---
CLINICAL HISTORY: Left flank pain TECHNIQUE: Axial sections of CT abdomen and pelvis were obtained without administration of intravenous contrast. Reformatted coronal and sagittal images were acquired. One of the following dose reduction techniques was utilized for this exam: Automated exposure control, adjustment of the mA and/or kV according to patient size, and use of iterative reconstruction. COMPARISON: None. FINDINGS: Limited evaluation is possible as this is an unenhanced examination. Both kidneys are normal in size and shape. Nonobstructing calculus in the lower pole of the right kidney measuring approximately 5.8 mm. No left-sided renal calculus. No evidence of obstructive uropathy. The urinary bladder is normally distended. No discrete intravesical abnormality or abnormal wall thickening. Slight invagination of the urinary bladder into the right inguinal region. Prostate appears unremarkable. Fat-containing left-sided inguinal hernia. The liver is enlarged in size measuring 18.6 mm in craniocaudal dimension with diffusely decreased parenchymal echogenicity, suggestive of fatty infiltration.There is a suggestion of a few prominent lymph nodes in the region of the олег hepatis the largest measuring approximately 2.7 x 1.5 cm on axial images. The spleen, pancreas and bilateral adrenal glands appear unremarkable. The stomach is partially distended. Visualized large and small bowel loops appear grossly unremarkable. The appendix is not separately visualized. No secondary signs of acute appendicitis. No ascites or pneumoperitoneum. Mild atherosclerotic changes in the abdominal aorta and its branches. Minimal subsegmental atelectatic changes in the lung bases.Calcified granuloma with measuring approximately 4 mm with possible adjacent bronchocele in the right middle lobe. Degenerative changes in the visualized spine. Grade 1 L4-L5 anterolisthesis. IMPRESSION: 1. No left-sided renal calculus. No evidence of obstructive uropathy. 2. Nonobstructing lower pole right renal calculus. 3. Fat-containing left-sided inguinal hernia. 4. Mild hepatomegaly with fatty infiltration. 5. Suggestion of enlarged lymph nodes at the олег hepatis. Electronically Signed by: Sunny Nguyễn MD. (11/30/2023 05:40:58 EDT)
[2023-11-30 05:50] LABS: Absolute Neutrophil Ct (ANC) 7.59 x10^3/uL (1.4-6.9); BASOPHIL % 0.5 % (0.0-0.4); Basophil (Absolute #) 0.05 x10^3/uL (0-0.4); Eosinophil % 0.8 % (0.00-5.0); Eosinophil (Absolute #) 0.08 x10^3/uL (0-0.5); Hematocrit 46.6 % (42-50); Hemoglobin 15.6 g/dL (12.5-18.0); IMMATURE GRAN # 0.03 x10^3u/L (0.00-0.03); IMMATURE GRAN % 0.3 % (0.00-0.4); Lymphocytes % 15.6 % (24.0-44.0); Mean Cell Volume 87.4 fL (78-100); Mean Corpuscular Hemoglobin 29.3 pg (26-32); Mean Corpuscular Hgb Concent. 33.5 g/dL (32-36); Mean Platelet Volume 9.2 fL (7.5-11.0); Monocyte (Absolute #) 0.91 x10^3/uL (0.0-1.3); Monocytes % 8.9 % (0.0-12.0); Neutrophil % 73.9 % (36.0-66.0); Platelet Count 159 x10^3/uL (150-450); Red Blood Count 5.33 x10^6/uL (4.1-5.6); Red Cell Distribution Width 12.9 % (11.5-14.0); White Blood Count 10.3 x10^3/uL (4.0-10.5)
[2023-11-30 06:04] LABS: ALBUMIN 4.4 g/dL (3.5-5.0); ANION GAP 17.3 MEQ/L (5-15); BILIRUBIN,TOTAL 0.6 mg/dL (0.2-1.3); Creatinine 1 0.84 mg/dL (0.66-1.25); Potassium 4.2 mmol/L (3.5-5.1); Total Protein 7.8 g/dL (6.3-8.2)
[2023-11-30 06:28] VITALS: PULSE 80
--- NOTE | 2023-11-30 06:31 | ERPHSYRPT ---
- History of Present Illness Time Seen by Provider: 11/30/23 04:27 Historian: patient Exam Limitations: no limitations Patient Subjective Stated Complaint: C/O left flank pain that started approx 24 hours ago Triage Nursing Assessment: Patient ambulated back to ER without difficulties. He is alert and oriented; anxious. No SOB. Skin tone normal. NICK WNL. Denies injury to area of pain or fall. No skin alterations noted to area of reported pain. Physician History: 53-year-old male with history of COPD presented in the ER with complains of left flank pain since he woke up yesterday morning. Patient reports moderate to severe sharp pain with some radiation to the left lower extremity, aggravated with activity and no significant relieving factors. Patient denies any urinary complaints.. Denies associated nausea or vomiting. No history of kidney stones. No fever or chills reported. Denies any numbness tingling weakness of lower extremities, loss of bowel or bladder control or saddle anesthesia. Allergies/Adverse Reactions: No Known Drug Allergies Allergy (Verified 11/30/23 04:23) Home Medications: Dextroamphetamine/Amphetamine [Adderall Xr 30 mg Capsule] 30 mg PO DAILY 11/05/23 [History] Hx Tetanus, Diphtheria Vaccination/Date Given: Yes Hx Influenza Vaccination/Date Given: No Hx Pneumococcal Vaccination/Date Given: No Immunizations Up to Date: Yes Travel Risk - International Travel Have you traveled outside of the country in past 3 weeks: No - Emerging Infectious Disease Are you exhibiting symptoms associated with any current EIDs: No - Review of Systems Constitutional: No Symptoms Eyes: No Symptoms Ears, Nose, & Throat: No Symptoms Respiratory: No Symptoms Cardiac: No Symptoms Abdominal/Gastrointestinal: Abdominal Pain Genitourinary Symptoms: Flank Pain Musculoskeletal: Back Pain Skin: No Symptoms Neurological: No Symptoms Psychological: No Symptoms Hematologic/Lymphatic: No Symptoms - Past Medical History Pertinent Past Medical History: Yes Neurological History: No Pertinent History ENT History: No Pertinent History Cardiac History: No Pertinent History Respiratory History: Bronchitis, COPD, Sleep Apnea Endocrine Medical History: No Pertinent History Musculoskeletal History: Arthritis, Fractures GI Medical History: No Pertinent History History: No Pertinent History Psycho-Social History: Depression Male Reproductive Disorders: No Pertinent History Other Medical History: ADHD - Past Surgical History Past Surgical History: Yes Neuro Surgical History: No Pertinent History Cardiac: No Pertinent History Respiratory: No Pertinent History Gastrointestinal: No Pertinent History Genitourinary: No Pertinent History Musculoskeletal: Orthopedic Surgery, Other Male Surgical History: No Pertinent History Other Surgical History: Right Jaw with plates, Left skull plate, Right wrist with 2 screws - Social History Smoking Status: Current every day smoker How long have you smoked: 30 Exposure to second hand smoke: No Drug Use: none Patient Lives Alone: No - Nursing Vital Signs Nursing Vital Signs: Initial Vital Signs Temperature 97.9 F 11/30/23 04:24 Pulse Rate 60 11/30/23 04:24 Respiratory Rate 19 11/30/23 04:24 Blood Pressure 151/99 11/30/23 04:24 O2 Sat by Pulse Oximetry 97 11/30/23 04:24 Pain Scale Pain Intensity 6 - Physical Exam General Appearance: no apparent distress, alert Eye Exam: PERRL/EOMI Ears, Nose, Throat Exam: normal ENT inspection Neck Exam: normal inspection, full range of motion Respiratory Exam: normal breath sounds, lungs clear Cardiovascular Exam: regular rate/rhythm, normal heart sounds Gastrointestinal/Abdomen Exam: soft, normal bowel sounds, tenderness (Left flank) Back Exam: normal inspection, normal range of motion, No CVA tenderness Extremity Exam: normal inspection, normal range of motion, pelvis stable Neurologic Exam: alert, oriented x 3, cooperative, jewelry consultant II-XII nml as tested Skin Exam: normal color SpO2 Interpretation: normal SpO2: 98 O2 Delivery: Room Air Ordered Tests: Active Orders 24 hr Category Date Time Status ABDOMEN AND PELVIS W/0 CONTRAS [CT] Stat Exams 11/30/23 04:45 Completed CBC W DIFF Stat Lab 11/30/23 05:45 Completed CMP Stat Lab 11/30/23 05:45 Completed UA W/RFX UR CULTURE Stat Lab 11/30/23 05:04 Completed Medication Summary Discontinued Medications Generic Name Dose Route Start Last Admin Trade Name Freq PRN Reason Stop Dose Admin Hydrocodone Bitart/Acetaminophen 2 tab 11/30/23 06:38 Hydrocodone/Apap 5/325 1 Tab Tablet PO 11/30/23 06:39 SENT HOME W/ PATIENT ONE Hydrocodone Bitart/Acetaminophen Confirm 11/30/23 06:40 Hydrocodone/Apap 5/325 1 Tab Tablet Administered 11/30/23 06:41 Dose 2 tab .ROUTE .[facility] ONE Ketorolac Tromethamine 30 mg 11/30/23 05:35 11/30/23 05:39 Ketorolac Tromethamine 30 Mg/Ml Inj IM 11/30/23 05:36 30 mg STAT ONE Administration Ketorolac Tromethamine Confirm 11/30/23 05:36 Ketorolac Tromethamine 30 Mg/Ml Inj Administered 11/30/23 05:37 Dose 30 mg .ROUTE .[facility] ONE Lab/Rad Data: Laboratory Result Diagrams 11/30/23 05:45 11/30/23 05:45 Laboratory Results 11/30/23 11/30/23 11/30/23 Range/Units 05:45 05:45 05:04 WBC 10.3 (4.0-10.5) x10^3/uL RBC 5.33 (4.1-5.6) x10^6/uL Hgb 15.6 (12.5-18.0) g/dL Hct 46.6 (42-50) % MCV 87.4 (78-100) fL MCH 29.3 (26-32) pg MCHC 33.5 (32-36) g/dL RDW 12.9 (11.5-14.0) % Plt Count 159 (150-450) x10^3/uL MPV 9.2 (7.5-11.0) fL Gran % 73.9 H (36.0-66.0) % Immature Gran % (Auto) 0.3 (0.00-0.4) % Nucleat RBC Rel Count 0.0 (0.00-0.1) % Eos # (Auto) 0.08 (0-0.5) x10^3/uL Immature Gran # (Auto) 0.03 (0.00-0.03) x10^3u/L Absolute Lymphs (auto) 1.60 (1.0-4.6) x10^3/uL Absolute Monos (auto) 0.91 (0.0-1.3) x10^3/uL Absolute Nucleated RBC 0.00 (0.00-0.01) x10^3u/L Lymphocytes % 15.6 L (24.0-44.0) % Monocytes % 8.9 (0.0-12.0) % Eosinophils % 0.8 (0.00-5.0) % Basophils % 0.5 (0.0-0.4) % Absolute Granulocytes 7.59 H (1.4-6.9) x10^3/uL Basophils # 0.05 (0-0.4) x10^3/uL Sodium 143 (135-145) mmol/L Potassium 4.2 (3.5-5.1) mmol/L Chloride 102 (98-107) mmol/L Carbon Dioxide 28 (22-30) mmol/L Anion Gap 17.3 H (5-15) MEQ/L BUN 11 (9-20) mg/dL Creatinine 0.84 (0.66-1.25) mg/dL Estimated GFR 103.0 ML/MIN Glucose 98 (74-106) mg/dL Calcium 9.0 (8.4-10.2) mg/dL Total Bilirubin 0.60 (0.2-1.3) mg/dL AST 58 (17-59) U/L ALT 68 H (0-50) U/L Alkaline Phosphatase 68 (38-126) U/L Serum Total Protein 7.8 (6.3-8.2) g/dL Albumin 4.4 (3.5-5.0) g/dL Urine Color Yellow (Yellow) Urine Appearance Clear (Clear) Urine pH 6.0 (4.6-8.0) Ur Specific [place] 1.025 (1.005-1.030) Urine Protein Negative (Negative) Urine Glucose (UA) Negative (Negative) mg/dL Urine Ketones Trace A (Negative) Urine Blood Negative (Negative) Urine Nitrite Negative (Negative) Urine Bilirubin Negative (Negative) Urine Urobilinogen 1.0 A (0.2) mg/dL Ur Leukocyte Esterase Negative (Negative) U Hyaline Cast (Auto) NONE SEEN (0-2) /LPF Urine Microscopic RBC 0-2 (0-5) /HPF Urine Microscopic WBC 0-2 (0-5) /HPF Ur Epithelial Cells None Seen (None Seen) /HPF Urine Bacteria None Seen (None Seen) /HPF Urine Sperm Few A (None Seen) /HPF Urine Culture Reflexed NO (NO) - Progress Progress: improved, pain not gone completely, re-examined Progress Note: 11/30/23 06:28 33-year-old is evaluated in the ER for left flank pain without urinary tract symptoms. Given symptomatic treatment with Toradol, on reevaluation her pain is better but not completely resolved. 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 Workup showed normal white count, fairly unremarkable chemistries and no UTI. CT abdomen pelvis without contrast is negative for obstructive uropathy, colitis, diverticulitis. No acute osseous finding in the back. His pain seems more of musculoskeletal. I would give him NSAIDs to go home and outpatient follow-up recommended. Patient has no cauda equina symptoms and pain is more in the flank area rather than the back. Discussed signs symptoms of worsening needing return to ER which he seems understanding. Stable for discharge. Counseled pt/family regarding: lab results, diagnosis, need for follow-up, rad results, smoking cessation Medical Desision Making - Diagnostic Testing Diagnostic test were ordered, analyzed, and reviewed by me: Yes Radiological Interpretation: Reviewed by me, Teleradiologist Report - Risk of complications The pt has a mod risk of morbidity or mortality based on: Need for prescription drug management - Departure Departure Disposition: Home Clinical Impression: Acute left flank pain Condition: Stable Critical Care Time: No Referrals: DAQUAN GONZALES [Primary Care Provider] - Follow up with PCP 1 day Instructions: Flank Pain Additional Instructions: Take Tylenol/ibuprofen as needed for pain. Follow-up with your primary care for reevaluation. Return to ER for intractable pain, difficulty urination, loss of bowel or bladder control, numbness tingling weakness of lower extremities or saddle anesthesia. Prescriptions: Ibuprofen 600 mg PO Q6HPRN PRN 10 Days #20 tablet PRN Reason: Pain
[2023-11-30] MEDS ORDERED: NORCO 5/325 MG ONE (06:40)
[2023-11-30] MEDS: NORCO 5/325 MG PO ONE (06:41)
[2023-11-30 06:44] VITALS: BP 128/90
== END 2023-11-30 06:44 | disposition home or self-care (01) ==
LOC: ED 04:17
DX: R10.9 Unspecified abdominal pain (principal); Z79.899 Other long term (current) drug therapy; Z72.0 Tobacco use
CPT/HCPCS: 36415; 74176; 80053; 81001; 85025; 96372; 99283; J1885; A9270-GY

== ENCOUNTER 2024-05-08 03:19 | Emergency (ER) | payer MEDICARE ==
[2024-05-08 03:36] VITALS: RESP 18; TEMP 97.7
[2024-05-08] MEDS ORDERED: DECADRON 10MG INJ. ONE (03:38)
[2024-05-08] MEDS ORDERED: Compazine 10 MG/2 ML ONE (03:38)
[2024-05-08] MEDS ORDERED: TORAdol 30 mg Injection ONE (03:38)
[2024-05-08] MEDS: DECADRON 10MG INJ. PO ONE (03:40)
[2024-05-08] MEDS: Compazine 10 MG/2 ML IM ONE (03:40)
[2024-05-08] MEDS: TORAdol 30 mg Injection IM ONE (03:40)
--- NOTE | 2024-05-08 03:43 | ERPHSYRPT ---
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 Symptoms have been ongoing for 5 days. Patient requesting relief. Patient declined COVID testing. Patient states he only wants to be treated for his symptoms. No associated chest pain or shortness of breath. No nausea vomiting or diaphoresis. Symptoms are mild to moderate in intensity. No specific worsening or improving factors. Patient otherwise feels well. He voices no other complaints or concerns at this time. Portions of this note were created with voice recognition technology. There may be grammatical, spelling, punctuation or sound alike errors Timing/Duration: today Severity: moderate Modifying Factors: Improves With: nothing Associated Symptoms: denies symptoms Allergies/Adverse Reactions: No Known Drug Allergies Allergy (Verified 05/08/24 03:25) Home Medications: Dextroamphetamine/Amphetamine [Adderall Xr 30 mg Capsule] 30 mg PO DAILY 11/05/23 [History] Hx Tetanus, Diphtheria Vaccination/Date Given: Yes Hx Influenza Vaccination/Date Given: No Hx Pneumococcal Vaccination/Date Given: No Travel Risk - International Travel Have you traveled outside of the country in past 3 weeks: No - Emerging Infectious Disease Are you exhibiting symptoms associated with any current EIDs: Yes Symptoms: Cough: New Onset, Headaches/Body Aches/ - Review of Systems Constitutional: No Symptoms, No Fever, No Chills Eyes: No Symptoms Ears, Nose, & Throat: No Symptoms Respiratory: No Symptoms, No Cough, No Dyspnea Cardiac: No Symptoms, No Chest Pain, No Edema, No Syncope Abdominal/Gastrointestinal: No Symptoms, No Abdominal Pain, No Nausea, No Vomiting, No Diarrhea Genitourinary Symptoms: No Symptoms, No Dysuria Musculoskeletal: No Symptoms, No Back Pain, No Neck Pain Skin: No Symptoms, No Rash Neurological: No Symptoms, No Dizziness, No Focal Weakness, No Sensory Changes Psychological: No Symptoms Endocrine: No Symptoms Hematologic/Lymphatic: No Symptoms Immunological/Allergic: No Symptoms All Other Systems: Reviewed and Negative - Past Medical History Pertinent Past Medical History: Yes Neurological History: No Pertinent History ENT History: No Pertinent History Cardiac History: No Pertinent History Respiratory History: Bronchitis, COPD, Sleep Apnea Endocrine Medical History: No Pertinent History Musculoskeletal History: Arthritis, Fractures GI Medical History: No Pertinent History History: No Pertinent History Psycho-Social History: Depression Male Reproductive Disorders: No Pertinent History Other Medical History: ADHD - Past Surgical History Past Surgical History: Yes Neuro Surgical History: No Pertinent History Cardiac: No Pertinent History Respiratory: No Pertinent History Gastrointestinal: No Pertinent History Genitourinary: No Pertinent History Musculoskeletal: Orthopedic Surgery, Other Male Surgical History: No Pertinent History Other Surgical History: Right Jaw with plates, Left skull plate, Right wrist with 2 screws - Social History Smoking Status: Current every day smoker How long have you smoked: 30 Exposure to second hand smoke: Yes Drug Use: none Patient Lives Alone: No - Social Determinants of Health Will the patient participate in the screening: Declined to provide - Nursing Vital Signs Nursing Vital Signs: Initial Vital Signs Temperature 97.7 F 05/08/24 03:28 Pulse Rate 97 H 05/08/24 03:28 Respiratory Rate 18 05/08/24 03:28 Blood Pressure 146/96 05/08/24 03:28 O2 Sat by Pulse Oximetry 100 05/08/24 03:28 Pain Scale Pain Intensity 8 - Physical Exam General Appearance: no apparent distress, alert Eye Exam: PERRL/EOMI, eyes nml inspection Ears, Nose, Throat Exam: normal ENT inspection, TMs normal, pharynx normal, moist mucous membranes, other (Sinus pressure, sinus tenderness reproduces reproduces symptoms, nasal congestion), No pharyngeal erythema Neck Exam: normal inspection, non-tender, supple, full range of motion Respiratory Exam: normal breath sounds, lungs clear, airway intact, No respiratory distress Cardiovascular Exam: regular rate/rhythm, normal heart sounds, normal peripheral pulses Gastrointestinal/Abdomen Exam: soft, normal bowel sounds, No tenderness, No mass Back Exam: normal inspection, normal range of motion, No CVA tenderness, No vertebral tenderness Extremity Exam: normal inspection, normal range of motion, pelvis stable Neurologic Exam: alert, oriented x 3, cooperative, normal mood/affect, sensation nml, No motor deficits Skin Exam: normal color, warm, dry, No rash Lymphatic Exam: No adenopathy SpO2 Interpretation: normal SpO2: 100 O2 Delivery: Room Air - Course Nursing assessment & vital signs reviewed: Yes Ordered Tests: Medication Summary Discontinued Medications Generic Name Dose Route Start Last Admin Trade Name Titi PRN Reason Stop Dose Admin Dexamethasone Sodium Phosphate 10 mg 05/08/24 03:31 05/08/24 03:40 Dexamethasone Sod Phosphate 10 Mg/Ml PO 05/08/24 03:32 10 mg STAT ONE Administration Dexamethasone Sodium Phosphate Confirm 05/08/24 03:38 Dexamethasone Sod Phosphate 10 Mg/Ml Administered 05/08/24 03:39 Dose 10 mg .ROUTE .STK-MED ONE Ketorolac Tromethamine 30 mg 05/08/24 03:28 05/08/24 03:40 Ketorolac Tromethamine 30 Mg/Ml Inj IM 05/08/24 03:29 30 mg STAT ONE Administration Ketorolac Tromethamine Confirm 05/08/24 03:38 Ketorolac Tromethamine 30 Mg/Ml Inj Administered 05/08/24 03:39 Dose 30 mg .ROUTE .STK-MED ONE Prochlorperazine Edisylate 10 mg 05/08/24 03:30 05/08/24 03:40 Prochlorperazine Edisylate 10 Mg/2 Ml Vial IM 05/08/24 03:31 10 mg STAT ONE Administration Prochlorperazine Edisylate Confirm 05/08/24 03:38 Prochlorperazine Edisylate 10 Mg/2 Ml Vial Administered 05/08/24 03:39 Dose 10 mg .ROUTE .STK-MED ONE - Progress Progress: improved Progress Note: 53-year-old male presents to the emergency department for evaluation of of sinus pressure nasal congestion frontal headache. Symptoms have been ongoing for 5 days. Patient states he cannot get any relief. Patient declined all testing. He does not want COVID testing or any other testing he specifically states that he only wants his symptoms treated. Decadron, Toradol and Compazine administered. Patient reassessed. Headache resolved. Congestion improved vital stable. Patient states he is ready for discharge. Patient voices no other complaints or concerns at this time. Portions of this note were created with voice recognition technology. There may be grammatical, spelling, punctuation or sound alike errors Complexity of problem addressed is moderate acute complicated. No critical care time. Complexity of data reviewed and analyzed is none. No specialized testing ordered. Diagnosis made based on history and physical examination per patient's request. Risk of complication and or risk of morbidity/mortality of patient management is moderate. Toradol prescription forwarded to patient's pharmacy. Vital stable. Time spent to discharge patient approximately 15 minutes. Plan of care established for shared decision making. No social determinants of health present impede follow-up. Portions of this note were created with voice recognition technology. There may be grammatical, spelling, punctuation or sound alike errors 05/08/24 03:44 Counseled pt/family regarding: diagnosis, need for follow-up - Departure Departure Disposition: Home Clinical Impression: URI (upper respiratory infection), Sinusitis, Nasal congestion Condition: Stable Critical Care Time: No Referrals: CHICO BARBER, [employer]IN[employer] TECHNICIAN [Primary Care Provider] - Follow up/PCP as directed Instructions: Sinusitis in adults, Upper Respiratory Infection ED Additional Instructions: Discharge/Care Plan ELIER MATT MEREDITH was seen on 05/08/24 in the Emergency Room. The patient was counseled regarding Diagnosis,Lab results, Imaging studies, need for follow up and when to return to the Emergency Room. Prescriptions given: Discharge Note I have spoken with the patient and/or caregivers. I have explained the patient's condition, diagnosis and treatment plan based on the information available to me at this time. I have answered the patient's and/or caregiver's questions and addressed any concerns. The patient and/or caregivers have as good understanding of the patient's diagnosis, condition and treatment plan as can be expected at this point. The vital signs have been stable. The patient's condition is stable and appropriate for discharge from the emergency department. The patient will pursue further outpatient evaluation with the primary care physician or other designated or consulting physician as outlined in the discharge instructions. The patient and/or caregivers are agreeable to this plan of care and follow-up instructions have been explained in detail. The patient and/or caregivers have received these instruction. The patient/and or caregivers are aware that any significant change in condition or worsening of symptoms should prompt an immediate return to this or the closest emergency department or call 911.
[2024-05-08 06:05] VITALS: PULSE 82; O2SAT 99
[2024-05-08 06:34] VITALS: BP 112/73
== END 2024-05-08 06:35 | disposition home or self-care (01) ==
LOC: ED 03:19
DX: J06.9 Acute upper respiratory infection, unspecified (principal); J32.9 Chronic sinusitis, unspecified; R09.81 Nasal congestion; Z79.899 Other long term (current) drug therapy; Z72.0 Tobacco use
CPT/HCPCS: 96372; 99283; J1100; J1885